=== PATIENT | male | born 1985 | race Caucasian/White ===

== ENCOUNTER 2024-01-21 12:08 | Observation (INO) | payer BC, OTHER ==
[~2024-01-21] VITALS: Ht 170.2 cm; Wt 121.6 kg
[2024-01-21] VITALS (11 sets, daily range): BP systolic 129–156; BP diastolic 70–86
[2024-01-21] MEDS ORDERED: NS 1,000 ML IV SCH (12:35)
[2024-01-21] MEDS ORDERED: Piperacillin/Tazobactam Sod 3.375 GM in NS 100 ML IV ONE (12:35)
[2024-01-21] MEDS ORDERED: Acetaminophen 325 MG TABLET PO PRN (13:00)
[2024-01-21] MEDS ORDERED: OxyCODONE HCL 5 MG TAB PO PRN (13:00)
[2024-01-21] MEDS ORDERED: Ondansetron HCl 2 MG / ML 2ML Vial IV PRN ×2 (13:00→20:20)
[2024-01-21] MEDS ORDERED: Lactated Ringer's 1,000 ML IV SCH ×2 (13:00→13:30)
[2024-01-21] MEDS ORDERED: HYDROmorphone HCl/Pf 1MG SYR IV PRN ×3 (13:05→20:30)
[2024-01-21] MEDS ORDERED: Ketorolac Tromethamine 15mg Vial IV PRN (13:10)
[2024-01-21] MEDS ORDERED: LOSA50 PO (14:54)
[2024-01-21] MEDS ORDERED: ROSUVASTATIN CAL5 MG PO (14:54)
[2024-01-21] MEDS ORDERED: ESCI20 PO (14:55)
[2024-01-21] MEDS ORDERED: METHYLPHENIDATE36 MG PO (14:56)
[2024-01-21] MEDS ORDERED: OZEMPIC1 MG/0.72 SC (14:57)
--- NOTE | 2024-01-21 15:53 | NUR ---
A&OX4. History, Chart, Medications and Allergies reviewed before start of procedure. Ambulatory in Day Surgery. Surgical site prepped with 2% Chlorhexidine cloth wipe. Lungs clear T/O to Auscultation. Pt reports last eating a 0600 01/21/24. Last does of Ozempic 01/16/24.
--- NOTE | 2024-01-21 16:10 | NUR ---
ARRIVAL TO SURGICAL UNIT VIA GOURNEY, IND TO TRANSFER TO HOSPITAL BED. DENIES NAUSEA & ONLY MINIMAL DISCOMFORT TO RLQ. AWAITING SURGERY TONIGHT.
[2024-01-21] MEDS ORDERED: Insulin Regular 100 UNIT/ML 10ML Vial SC SCH (16:30)
[2024-01-21] MEDS ORDERED: Piperacillin/Tazobactam Sod 3.375 GM in NS 100 ML IV SCH (18:00)
[2024-01-21] MEDS ORDERED: Bupivacaine 0.5% HCl 5 MG/ML 30MLVIAL ONE (18:36)
--- NOTE | 2024-01-21 18:40 | NUR ---
[facility]
--- NOTE | 2024-01-21 18:56 | NUR ---
AMBULATED IN DAY SURGERY WELL. VSS. ON RA. EMPTIED BLADDER. RESTING WELL.
[2024-01-21] MEDS ORDERED: propofoL 20 ML IV ONE (19:19)
[2024-01-21] MEDS ORDERED: FentaNYL Citrate 50 MCG/ML 2 ML Injection ONE (19:20)
[2024-01-21] MEDS ORDERED: Lidocaine HCl 2% 20 ML MDV ONE (19:20)
[2024-01-21] MEDS ORDERED: SuccINYLCHOLINE Chloride 100 MG/5 ML 5MLSYR ONE (19:27)
[2024-01-21] MEDS ORDERED: Rocuronium Bromide 10 MG/ML 5ML Injection IV ONE (19:27)
[2024-01-21] MEDS ORDERED: Ondansetron HCl 2 MG / ML 2ML Vial ONE (19:29)
[2024-01-21] MEDS ORDERED: Dexamethasone Sod Phos 10 MG/ML 1ML VIAL ONE (19:29)
[2024-01-21] MEDS ORDERED: Phenylephrine HCl 100 MCG/ML-NS 10MLSYR (1MG/10ML) ONE (19:38)
[2024-01-21] MEDS ORDERED: Sugammadex Sodium 200 MG/2ML SDV (100 MG/ML) ONE (20:14)
[2024-01-21] MEDS ORDERED: Albuterol 2.5 MG/3 ML VIAL INH PRN (20:20)
[2024-01-21] MEDS ORDERED: Dexamethasone Sodium Phosphate 4 MG/ML 5ML VIAL IV PRN (20:20)
[2024-01-21] MEDS ORDERED: ePHEDrine Sulfate 50 MG/ML 1ML Injection IV PRN (20:20)
[2024-01-21] MEDS ORDERED: Morphine Sulfate 4 MG/1 ML Injection IV PRN ×2 (20:25→20:30)
[2024-01-21] MEDS ORDERED: FentaNYL Citrate 50 MCG/ML 2 ML Injection IV PRN ×3 (20:25)
[2024-01-21] MEDS ORDERED: Meperidine HCl 50 MG/ML 1ML Injection IV PRN (20:30)
--- NOTE | 2024-01-21 21:36 | NUR ---
ARRIVAL PT ARRIVED BACK FROM PACU AROUND 2100. ARRIVED IN NO DISTRESS, A/OX4. REPORTS 5/10 INCISIONAL PAIN. DENIES N/V. PT TOLLERATING CLEARS AND CRACKERS AT THIS TIME. URINAL AT BEDSIDE AND CALL LIGHT WITHIN REACH.
[2024-01-22 02:31] VITALS: BP 136/78
--- NOTE | 2024-01-22 04:23 | NUR ---
SHIFT SUMMARY POD1 LAP APPY. X3 LAP SITES ARE C/D/I, CLOSED WITH WOUND GLUE. VSS. PT HAS SLEPT ON AND OFF T/O THE NIGHT. TOLLERATING CLEAR LIQUID AND CRACKERS W/O N/V OR ABD PAIN. PT REPORTS PASSING NO FLATTUS AT THIS TIME. VOIDING INTO URINAL INDEP. MEDICATED FOR PAIN WITH PRN'S WITH GOOD RESULTS. OVERALL NO ACUTE EVENTS NOTED, PLAN FOR D/C TODAY
[2024-01-22 07:27] VITALS: BP 124/81
[2024-01-22] MEDS ORDERED: Atorvastatin 10 MG Tab PO SCH (09:00)
[2024-01-22] MEDS ORDERED: Losartan Potassium 50 MG Tab PO SCH (09:00)
[2024-01-22] MEDS ORDERED: Citalopram Hydrobromide 20 MG Tab PO SCH (09:00)
[2024-01-22] MEDS ORDERED: Enoxaparin 40 MG/0.4 ML SYR SC SCH (09:00)
[2024-01-22] MEDS ORDERED: OXYC5 PO (09:52)
--- NOTE | 2024-01-22 10:15 | NUR ---
DISCHARGE POD 1 LAP APPY PT PAIN CONTROLLED PER EMAR. PASSING FLATUS AND TOLERATING DIET WELL. LAP SITES REMAIN CDI. PT AMBULATING WELL IN ROOM. MEDICATION[facility] PRIOR TO DISCHARGE. ALL INSTRUCTIONS GONE OVER WITH PATIENT, ALL BELONGINGS WITH PATIENT. TAKEN TO VEHICLE VIA WHEELCHAIR.
== END 2024-01-22 10:17 | disposition home or self-care (01) ==
LOC: ER 12:08 → SURS 12:09 → ER 14:28 → SURS 16:23
PROVIDERS: ADMIT Surgery
PROC: 0DTJ4ZZ Resection of Appendix, Percutaneous Endoscopic Approach (ICD-10-PCS; principal; 2024-01-21 14:30)
DX: K35.891 Other acute appendicitis without perforation, with gangrene (principal); I10 Essential (primary) hypertension; E11.9 Type 2 diabetes mellitus without complications; Z79.899 Other long term (current) drug therapy
CPT/HCPCS: 82947; 88304; 94762; 96365-59; 96366; 99284-25; A9270; G0378; J0330; J1100; J1885; J2371; J2405; J2543; J2704; J3010; J7120

== ENCOUNTER → 2024-01-21 | Outpatient (CLI) | payer BC, OTHER ==
[~2024-01-21] MED LIST: ESCI20 PO; LOSA50 PO; METHYLPHENIDATE36 MG PO; OXYC5 PO; OZEMPIC1 MG/0.72 SC; ROSUVASTATIN CAL5 MG PO
[2024-01-21 09:30] LABS: BASOPHILS ABSOLUTE AUTO 0.03 K/mm3 (0.00-0.23); BASOPHILS PERCENT AUTO 0 % (0-2); EOSINOPHILS ABSOLUTE AUTO 0.21 K/mm3 (0.00-0.68); EOSINOPHILS PERCENT AUTO 3 % (0-6); Hematocrit 41.7 % (37.0-53.0); Hemoglobin 13.8 g/dL (13.5-17.5); IMMATURE GRAN ABSOLUTE AUTO 0.02 K/mm3 (0.00-0.10); IMMATURE GRAN PERCENT AUTO 0 % (0-1); LYMPHOCYTES ABSOLUTE AUTO 1.71 K/mm3 (0.84-5.20); LYMPHOCYTES PERCENT AUTO 21 % (21-46); MONOCYTES ABSOLUTE AUTO 0.83 K/mm3 (0.16-1.47); MONOCYTES PERCENT AUTO 10 % (4-13); Mean Corpuscular HGB 29.2 pg (26.0-34.0); Mean Corpuscular HGB Conc 33.1 g/dL (31.5-36.5); Mean Corpuscular Volume 88 fL (80-100); Mean Platelet Volume 9.4 fL (9.1-12.4); NEUTROPHILS ABSOLUTE AUTO 5.23 K/mm3 (1.96-9.15); NEUTROPHILS PERCENT AUTO 65 % (41-73); Platelet Count 217 K/mm3 (150-400); RDW Coefficient Variation 13.5 % (11.7-14.2); RDW Standard Deviation 43.2 fL (35.1-46.3); Red Blood Cell Count 4.73 M/mm3 (4.30-5.90); White Blood Cell Count 8.03 K/mm3 (4.00-11.30)
[2024-01-21 09:44] LABS: Albumin/Globulin Ratio 0.7 (0.8-1.8); Bilirubin, Total 0.3 mg/dL (0.1-1.0); Calcium, Blood 9.2 mg/dL (8.5-10.1); Creatinine, Blood 1.08 mg/dL (0.60-1.20); Globulin, Blood 4.1 g/dL (2.2-4.0); Potassium, Blood 4.3 mmol/L (3.5-5.5); Total Protein, Blood 7.1 g/dL (6.4-8.2)
== END | disposition home or self-care (01) ==
LOC: LAB 09:25 → LAB SHORT 09:25
PROVIDERS: Physician Assistant Medical
DX: R10.31 Right lower quadrant pain (principal)
CPT/HCPCS: 80053; 85025

== ENCOUNTER → 2024-12-24 | Outpatient (CLI) | payer BC ==
[2024-12-24 18:44] LABS: Creatinine, Urine Random 63.2 mg/dL (27.00-270.00); Microalb/Creat Ratio UR, Rand 343.354 mg/g (0.000-30.000)
== END | disposition home or self-care (01) ==
LOC: LAB SHORT 08:00 → LAB 08:00
PROVIDERS: Nurse Practitioner Family
DX: E11.69 Type 2 diabetes mellitus with other specified complication (principal)
CPT/HCPCS: 82043; 82570

== ENCOUNTER → 2025-04-15 | Outpatient (CLI) | payer BC ==
[2025-04-15 21:53] LABS: Creatinine, Urine Random 169.0 mg/dL (27.00-270.00); Microalb/Creat Ratio UR, Rand 176.331 mg/g (0.000-30.000); Microalbumin, Random Urine 298.0 mg/L (0.000-20.000)
== END ==
LOC: LAB 11:09 → LAB SHORT 11:09
PROVIDERS: Nurse Practitioner Family
DX: E11.69 Type 2 diabetes mellitus with other specified complication (principal)
CPT/HCPCS: 82043; 82570